=== PATIENT | male | born 1965 | race Caucasian/White ===

== ENCOUNTER → 2016-12-29 | Day surgery (SDC) | payer OTHER ==
[~2016-12-29] VITALS: Ht 170.2 cm; Wt 111.2 kg
[2016-12-29 08:49] LABS: CREATININE 0.9 mg/dL (0.7-1.2); POTASSIUM 4.5 mmol/L (3.5-5.1)
== END | disposition home or self-care (01) ==
LOC: FAS 07:28
PROVIDERS: Anesthesiology
DX: Z12.11 Encounter for screening for malignant neoplasm of colon (principal); D12.0 Benign neoplasm of cecum; K63.5 Polyp of colon; E11.9 Type 2 diabetes mellitus without complications; I10 Essential (primary) hypertension; E78.5 Hyperlipidemia, unspecified; E03.9 Hypothyroidism, unspecified; J44.9 Chronic obstructive pulmonary disease, unspecified; F17.210 Nicotine dependence, cigarettes, uncomplicated; G47.30 Sleep apnea, unspecified; Z79.82 Long term (current) use of aspirin; Z79.899 Other long term (current) drug therapy
CPT/HCPCS: 36415; 80048; 82962; 88305; J2704

== ENCOUNTER 2022-03-12 12:04 | Emergency (ER) | payer OTHER ==
[~2022-03-12 12:04] MED LIST: PROTONIX 40MG T40 MG PO
[2022-03-12 13:31] LABS: BASOPHIL 1.3 % (0-2); EOSINOPHIL 2.1 % (0-5); HCT 55.6 % (42.0-52.0); HGB 19.7 g/dl (13.2-18.0); LYMPHOCYTE 11.6 % (15-48); MCH 32.9 pg (25.0-31.0); MCHC 35.4 g/dL (32.0-36.0); MONOCYTE 6.9 % (0-12); MPV 9.8 fL (6.0-9.5); NEUTROPHIL 76.9 % (41-80); NRBC 0; PLT 296 K/uL (150-400); RBC 5.98 M/uL (4.70-6.00); RDW 14.7 % (11.5-14.0); WBC 10.3 K/uL (4.0-10.5)
[2022-03-12 14:10] LABS: CORONAVIRUS 2019 SARS-COV-2 NEGATIVE (NEGATIVE); INFLUENZA A NAA NEGATIVE (NEGATIVE)
[2022-03-12 14:22] LABS: BILIRUBIN NEGATIVE (NEGATIVE); BLOOD NEGATIVE Ery/uL (NEGATIVE); CLARITY CLEAR (CLEAR); COLOR YELLOW (YELLOW); GLUCOSE (U) NORMAL (NORMAL); LEUKOCYTES NEGATIVE Leu/uL (NEGATIVE); NITRITE NEGATIVE (NEGATIVE); PROTEIN NEGATIVE (NEGATIVE); SPECIFIC GRAVITY 1.015 (1.001-1.030); UROBILINOGEN 0.2 mg/dL (0.2-1.0); pH 7.5 (5.0-9.0)
[2022-03-12 14:46] LABS: ALBUMIN 3.8 g/dL (3.4-5.0); BILIRUBIN - TOTAL 0.8 mg/dL (0.2-1.0); BUN/CREAT RATIO (CALC) 23.6 RATIO; CREATININE 1.65 mg/dL (0.67-1.17); GLOBULIN (CALCULATION) 5.2 g/dL; POTASSIUM 4.2 mmol/L (3.5-5.1)
[2022-03-12 15:07] LABS: LACTIC ACID 1.5 mmol/L (0.4-1.9)
[2022-03-12] MEDS ORDERED: ONDANSETRON HCL4 MG PO (16:41)
== END 2022-03-12 16:55 | disposition home or self-care (01) ==
LOC: FER 12:04
PROVIDERS: Nurse Practitioner Family
DX: R10.84 Generalized abdominal pain (principal); R11.2 Nausea with vomiting, unspecified; I10 Essential (primary) hypertension; F17.210 Nicotine dependence, cigarettes, uncomplicated; Z20.822 Contact with and (suspected) exposure to COVID-19; Z28.310 Unvaccinated for COVID-19
CPT/HCPCS: 36415; 80053; 81003; 82150; 83605; 83690; 84145; 85025; 87040; J7030; U0002